=== PATIENT | female | born 2005 | race African-American/Black ===

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

== ENCOUNTER 2024-10-13 14:00 | Emergency (ER) | payer OTHER, SELFPAY | END 2024-10-13 18:30 | disposition left against medical advice (07) | LOC: ERS 14:00 | DX: Z53.21 Procedure and treatment not carried out due to patient leaving prior to being seen by health care provider (principal) | CPT/HCPCS: 87428 ==

== ENCOUNTER 2024-10-17 23:25 | Emergency (ER) | payer MEDICAID, SELFPAY ==
[2024-10-18] MEDS ORDERED: Ketorolac Tromethamine 30 MG (1 mL) VIAL ONE (00:17)
[2024-10-18] MEDS ORDERED: Diazepam 10 MG/2 ML SYRINGE ONE (00:17)
[2024-10-18 00:20] LABS: Mean Corpuscular HGB CONC 34.1 g/dL (32.0-36.0); Mean Corpuscular Hemoglobin 28.5 pg (25.0-35.0); Mean Corpuscular Volume 83.5 fL (78.0-98.0); Mean Platelet Volume 10.3 fL (7.4-10.4); Platelet Count 215 10x3/uL (130-400); Red Blood Cell (RBC) Count 5.27 mill/uL (4.00-5.20)
[2024-10-18 00:25] LABS: Actual Bicarbonate (HCO3v) 21.7 mEq/L (22-28); Base Excess -1.3 mEq/L (-2.0 to +3.0); Calcium, Ionized (venous) 1.13 mmol/L (1.16-1.32); Chloride (VBG) 105 mmol/L (98-106); Hematocrit-VBG 44 % (36.0-47.0); Hemoglobin (Hb) 15.1 g/dL (11.7-15.5); Potassium (VBG) 3.51 mmol/L (3.70-5.30); Sodium 139 mmol/L (133-146)
[2024-10-18 00:27] LABS: BHCG - Serum Negative (NEGATIVE); Pregs Control Background? CLEAR/WHITE (CLR/WHITE); Pregs Control Bar Appear? YES (CONTROL BAR)
[2024-10-18 00:33] LABS: ALT (SGPT) 27 U/L (Less than 34); AST (SGOT) 47 U/L (11-34); Alkaline Phosphatase 60 U/L (40-100); Anion Gap 17 mmol/L (10-20); BUN (Urea Nitrogen) 8 mg/dL (7.0-18.7); Bilirubin, Total 0.2 mg/dL (0.3-1.2); Calc. Creatinine Clearance 0 mL/min (70-130); Calcium 9.6 mg/dL (7.8-10.44); Carbon Dioxide 18 mmol/L (22-29); Chloride 107 mmol/L (98-107); Estimated GFR 105; Globulin 3.7 g/dL (2.4-3.5); Glucose 97 mg/dL (70-105); Lipase 31 U/L (8-78); Potassium 3.3 mmol/L (3.5-5.1); Protein, Total 7.7 g/dL (6.0-8.3); Sodium 139 mmol/L (136-145)
[2024-10-18 00:37] LABS: Troponin I Less than 0.010 ng/mL (< 0.028)
[2024-10-18 00:38] LABS: Band 2 % (5-11); Hypochromia SLIGHT = 6-15 cells HPF (0-5); Large Platelets 2.9 % (0-5); Lymphocytes 48 % (28-48); Monocytes 9 % (0-4); Neutrophil 37 % (31-61); Platelet Adequacy Comment Platelets Normal; Polychromasia SLIGHT = 2-3 cells HPF (0-2); Reactive Lymphocytes 5 % (0-10)
== END 2024-10-18 01:23 | disposition home or self-care (01) ==
LOC: ERS 23:25
DX: B34.9 Viral infection, unspecified (principal); R11.2 Nausea with vomiting, unspecified; F17.290 Nicotine dependence, other tobacco product, uncomplicated; Z55.0 Illiteracy and low-level literacy
CPT/HCPCS: 36415; 71045; 80053; 82805; 83690; 84484; 84703; 85025; 93005; 96374; 96375; J1885; J3360